=== PATIENT | male | born 1955 | race Caucasian/White ===

== ENCOUNTER 2023-11-25 20:40 | Inpatient (IN) | payer OTHER ==
[~2023-11-25] VITALS: Ht 170.2 cm; Wt 78.0 kg
[2023-11-25 20:53] VITALS: BP 135/86; PULSE 115; RESP 19; TEMP 97.8; O2SAT 97
[2023-11-25] MEDS ORDERED: ACETAMINOPHEN 325 MG TAB PO PRN (23:00)
[2023-11-25] MEDS ORDERED: MAG SULF 2000 MG/WATER PREMIX 50 ML IV PRN (23:00)
[2023-11-25] MEDS ORDERED: MAGNESIUM OXIDE 400 MG TAB PO PRN (23:00)
[2023-11-25] MEDS ORDERED: POTASSIUM CHLORIDE 10 MEQ TABER PO PRN (23:00)
[2023-11-25] MEDS ORDERED: KCL 20 MEQ IN 100 mL PREMIX 200 ML IV PRN (23:00)
[2023-11-25] MEDS ORDERED: ONDANSETRON 4 MG/2 ML VIAL IVP PRN (23:00)
[2023-11-25 23:10] LABS: APPEARANCE,URINE CLEAR (CLEAR); BILIRUBIN,URINE NEGATIVE (NEGATIVE); BLOOD, URINE NEGATIVE (NEGATIVE); COLOR,URINE YELLOW (YELLOW); LEUKOCYTE ESTERASE ,URINE NEGATIVE (NEGATIVE); NITRITE, URINE NEGATIVE (NEGATIVE); PROTEIN,URINE NEGATIVE (NEGATIVE); UGLUCOSE NEGATIVE (NEGATIVE); UROBILINOGEN,URINE 0.2 EU/dL (0.2 - 1)
[2023-11-25 23:11] LABS: BASOPHILS # (AUTO) 0.1 K/uL (0.00-0.22); BASOPHILS % (AUTO) 1.4 % (0.0-2.0); EOSINOPHILS # (AUTO) 0.7 K/uL (0-0.4); EOSINOPHILS % (AUTO) 7.9 % (0.0-4.0); HEMATOCRIT 43.9 % (36-52); HEMOGLOBIN 14.4 g/dL (12.0-18.0); LYMPHOCYTES # (AUTO) 2.4 K/uL (2.0-11.5); LYMPHOCYTES % (AUTO) 25.1 % (20.5-51.1); MEAN CORPUSCULAR HEMOGLOBIN 28 pg (27-31); MEAN CORPUSCULAR HGB CONC 33 g/dL (33-37); MEAN CORPUSCULAR VOLUME 84.3 fL (80-94); MONOCYTES % (AUTO) 10.8 % (1.7-9.3); NEUTROPHILS # (AUTO) 5.2 K/uL (1.8-7.7); NEUTROPHILS % (AUTO) 54.8 % (42.2-75.2); PLATELET COUNT (AUTO) 385 K/uL (140-450); RED BLOOD CELL COUNT(AUTO) 5.21 MIL/uL (4.20-6.10); RED CELL DISTRIBUTION WIDTH 16.4 % (11.6-13.7); WHITE BLOOD COUNT (AUTO) 9.5 K/uL (4.8-10.8)
[2023-11-25 23:20] LABS: ANION GAP 10.2 (8-16); CALCIUM 8.9 mg/dL (8.5-10.1); CARBON DIOXIDE 29.6 mmol/L (21-32); POTASSIUM 3.8 mmol/L (3.5-5.1)
[2023-11-25] MEDS ORDERED: cefTRIAXone 1,000 MG VIAL ONE (23:26)
[2023-11-25 23:28] LABS: ALBUMIN 2.3 g/dL (3.4-5.0); BILIRUBIN,DIRECT 0.1 mg/dL (0.0-0.3); TOTAL BILIRUBIN 0.1 mg/dL (0.0-1.0); TOTAL PROTEIN, SERUM 8.6 g/dL (6.4-8.2)
[2023-11-25 23:30] LABS: LACTIC ACID 0.9 mmol/L (0.4-2.0)
[2023-11-25] MEDS: MORPHINE SULFATE 4 MG/ML SYR IVP PRN (23:49)
[2023-11-26] MEDS ORDERED: IBUP-2213 PO (01:17)
[2023-11-26] MEDS ORDERED: ACET-9535 PO (01:17)
[2023-11-26] MEDS ORDERED: CYCL-711 PO (01:17)
[2023-11-26] MEDS ORDERED: NALO4SPR NS (01:17)
[2023-11-26] MEDS ORDERED: GABA300C PO (01:17)
[2023-11-26] MEDS ORDERED: HYDR2TAB6 PO (01:17)
[2023-11-26] MEDS ORDERED: SENN-72 PO (01:17)
[2023-11-26] MEDS ORDERED: LORA-476 PO (01:17)
[2023-11-26] MEDS ORDERED: BISA-218 RC (01:17)
[2023-11-26] MEDS ORDERED: FERR325E14 PO (01:17)
[2023-11-26] MEDS ORDERED: DIPH25TA53 PO (01:17)
[2023-11-26] MEDS ORDERED: MULT-2253 PO (01:17)
[2023-11-26] MEDS ORDERED: DULO30EC PO (01:17)
[2023-11-26] MEDS ORDERED: [UNRECOGNIZED DRUG - CODE] NS (01:17)
[2023-11-26 06:49] LABS: BASOPHILS # (AUTO) 0.1 K/uL (0.00-0.22); BASOPHILS % (AUTO) 0.6 % (0.0-2.0); EOSINOPHILS # (AUTO) 0.5 K/uL (0-0.4); HEMATOCRIT 39.3 % (36-52); HEMOGLOBIN 12.7 g/dL (12.0-18.0); LYMPHOCYTES # (AUTO) 1.5 K/uL (2.0-11.5); LYMPHOCYTES % (AUTO) 17.7 % (20.5-51.1); MEAN CORPUSCULAR HEMOGLOBIN 27 pg (27-31); MEAN CORPUSCULAR HGB CONC 32 g/dL (33-37); MEAN CORPUSCULAR VOLUME 84.2 fL (80-94); MONOCYTES # (AUTO) 1.1 K/uL (0.8-1.0); MONOCYTES % (AUTO) 13.2 % (1.7-9.3); NEUTROPHILS # (AUTO) 5.3 K/uL (1.8-7.7); NEUTROPHILS % (AUTO) 62.5 % (42.2-75.2); PLATELET COUNT (AUTO) 321 K/uL (140-450); RED BLOOD CELL COUNT(AUTO) 4.66 MIL/uL (4.20-6.10); WHITE BLOOD COUNT (AUTO) 8.5 K/uL (4.8-10.8)
[2023-11-26 07:02] LABS: ALBUMIN 1.9 g/dL (3.4-5.0); ANION GAP 9.7 (8-16); CALCIUM 8.4 mg/dL (8.5-10.1); CARBON DIOXIDE 29.4 mmol/L (21-32); CREATININE 0.9 mg/dL (0.6-1.3); POTASSIUM 4.1 mmol/L (3.5-5.1); TOTAL BILIRUBIN 0.2 mg/dL (0.0-1.0); TOTAL PROTEIN, SERUM 7.1 g/dL (6.4-8.2)
[2023-11-26 08:25] VITALS: BP 137/89; PULSE 90; RESP 16; TEMP 96.5; O2SAT 100
[2023-11-26 09:00] VITALS: PULSE 90; RESP 16; O2SAT 100
[2023-11-26] MEDS: HYDROcodone/APAP 5/325 MG 1 TAB TAB PO PRN (09:04)
[2023-11-26] MEDS ORDERED: VANCOMYCIN PER PHARMACY MC PRN (11:15)
[2023-11-26] MEDS: VANCOMYCIN 750 MG in DEXTROSE 5% 250 ML IV SCH (12:36)
[2023-11-26] MEDS: HYDROcodone/APAP 10/325 MG 1 TAB TAB PO PRN (13:53)
[2023-11-26 16:00] VITALS: BP 134/74; PULSE 98; RESP 16; TEMP 97; O2SAT 99
[2023-11-26 20:00] VITALS: BP 138/87; PULSE 100; RESP 18; TEMP 96.3; O2SAT 98
[2023-11-27 04:00] VITALS: BP 121/67; PULSE 86; RESP 18; TEMP 96.8; O2SAT 92
[2023-11-27 07:06] LABS: BASOPHILS # (AUTO) 0.1 K/uL (0.00-0.22); BASOPHILS % (AUTO) 0.9 % (0.0-2.0); EOSINOPHILS # (AUTO) 0.5 K/uL (0-0.4); HEMATOCRIT 37.8 % (36-52); HEMOGLOBIN 12.5 g/dL (12.0-18.0); LYMPHOCYTES # (AUTO) 1.7 K/uL (2.0-11.5); LYMPHOCYTES % (AUTO) 25.4 % (20.5-51.1); MEAN CORPUSCULAR HEMOGLOBIN 28 pg (27-31); MEAN CORPUSCULAR HGB CONC 33 g/dL (33-37); MEAN CORPUSCULAR VOLUME 83.6 fL (80-94); MONOCYTES # (AUTO) 0.9 K/uL (0.8-1.0); MONOCYTES % (AUTO) 12.8 % (1.7-9.3); NEUTROPHILS # (AUTO) 3.6 K/uL (1.8-7.7); NEUTROPHILS % (AUTO) 52.9 % (42.2-75.2); PLATELET COUNT (AUTO) 318 K/uL (140-450); RED BLOOD CELL COUNT(AUTO) 4.52 MIL/uL (4.20-6.10); RED CELL DISTRIBUTION WIDTH 16.6 % (11.6-13.7); WHITE BLOOD COUNT (AUTO) 6.8 K/uL (4.8-10.8)
[2023-11-27 07:19] LABS: ALBUMIN 1.9 g/dL (3.4-5.0); ANION GAP 8.2 (8-16); CALCIUM 8.3 mg/dL (8.5-10.1); CARBON DIOXIDE 30.5 mmol/L (21-32); CREATININE 0.7 mg/dL (0.6-1.3); POTASSIUM 3.7 mmol/L (3.5-5.1); TOTAL BILIRUBIN 0.2 mg/dL (0.0-1.0); TOTAL PROTEIN, SERUM 7.2 g/dL (6.4-8.2)
[2023-11-27 08:00] VITALS: BP 121/70; PULSE 82; RESP 20; TEMP 97.1; O2SAT 98
[2023-11-27 08:48] VITALS: PULSE 62; RESP 18; O2SAT 100
[2023-11-27] MEDS: VANCOMYCIN 1,000 MG in DEXTROSE 5% 250 ML IV SCH (12:00)
[2023-11-27] MEDS ORDERED: NON ADHERENT DRESSING TP PRN (14:15)
[2023-11-27 16:00] VITALS: BP 129/85; PULSE 88; RESP 20; TEMP 97.3; O2SAT 97
[2023-11-27 20:00] VITALS: PULSE 88; RESP 20; O2SAT 97
[2023-11-28] VITALS: BP 129/85; PULSE 88; RESP 20; TEMP 97.3; O2SAT 97
[2023-11-28 07:36] LABS: ANION GAP 10.2 (8-16); CALCIUM 8.5 mg/dL (8.5-10.1); CARBON DIOXIDE 29.1 mmol/L (21-32); CREATININE 0.7 mg/dL (0.6-1.3); POTASSIUM 4.3 mmol/L (3.5-5.1); TOTAL BILIRUBIN 0.1 mg/dL (0.0-1.0); TOTAL PROTEIN, SERUM 7.7 g/dL (6.4-8.2)
[2023-11-28 07:43] LABS: BASOPHILS # (AUTO) 0.1 K/uL (0.00-0.22); BASOPHILS % (AUTO) 0.9 % (0.0-2.0); EOSINOPHILS # (AUTO) 0.5 K/uL (0-0.4); EOSINOPHILS % (AUTO) 7.1 % (0.0-4.0); HEMATOCRIT 41.1 % (36-52); HEMOGLOBIN 13.3 g/dL (12.0-18.0); LYMPHOCYTES # (AUTO) 1.8 K/uL (2.0-11.5); LYMPHOCYTES % (AUTO) 26.1 % (20.5-51.1); MEAN CORPUSCULAR HEMOGLOBIN 27 pg (27-31); MEAN CORPUSCULAR HGB CONC 32 g/dL (33-37); MEAN CORPUSCULAR VOLUME 84.6 fL (80-94); MONOCYTES # (AUTO) 0.8 K/uL (0.8-1.0); MONOCYTES % (AUTO) 11.8 % (1.7-9.3); NEUTROPHILS # (AUTO) 3.8 K/uL (1.8-7.7); NEUTROPHILS % (AUTO) 54.1 % (42.2-75.2); PLATELET COUNT (AUTO) 366 K/uL (140-450); RED BLOOD CELL COUNT(AUTO) 4.86 MIL/uL (4.20-6.10); RED CELL DISTRIBUTION WIDTH 16.6 % (11.6-13.7)
[2023-11-28 08:00] VITALS: BP 124/83; PULSE 98; RESP 18; TEMP 97.4; O2SAT 96
[2023-11-28] MEDS ORDERED: CEFT1SOL1 IV (10:18)
[2023-11-28] MEDS ORDERED: NON ADHERENT DRESSING TP SCH (13:00)
== END 2023-11-28 12:14 | DRG 872 ==
LOC: MED 20:40 → UNDOADMIN 22:33 → MTU 22:33
PROVIDERS: ADMIT Hospitalist; ATTEND Hospitalist
DX: A41.9 Sepsis, unspecified organism (principal); L03.116 Cellulitis of left lower limb; E44.1 Mild protein-calorie malnutrition; R64 Cachexia; L03.115 Cellulitis of right lower limb; I87.8 Other specified disorders of veins; I10 Essential (primary) hypertension; E11.9 Type 2 diabetes mellitus without complications; D72.829 Elevated white blood cell count, unspecified; Z79.899 Other long term (current) drug therapy; Z68.26 Body mass index [BMI] 26.0-26.9, adult
CPT/HCPCS: 36415; 80048; 80053; 80076; 80202; 81003; 83605; 83735; 85025; 87040; 87070; 87081; 87186; 96365; 97116; 97530; 99285; J0696; J1644; J2270; J3370; J7060